=== PATIENT | female | born 1955 | race Caucasian/White ===

== ENCOUNTER 2019-05-24 16:29 | Emergency (ER) | payer MEDICARE, OTHER ==
--- NOTE | 2019-05-24 18:27 | EDM.PDOC ---
ED HPI GENERAL MEDICAL PROBLEM - General Chief Complaint: Lower Extremity Injury/Pain Stated Complaint: LEFT LEG CRAMPS AND PAIN, CHEST PAIN Time Seen by Provider: 05/24/19 17:40 Source of Information: Reports: Patient, Family () History Limitations: Reports: No Limitations - History of Present Illness INITIAL COMMENTS - FREE TEXT/NARRATIVE: Alert 64 yo female presents to ER with 10 days history of left leg cramping and weakness. Patient noted cramping in her left calf approximately 10 days ago. 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 Patient states in the summer she walks 3 miles twice and day and [employer] on average 6 days per week. 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 Patient denies new fall injury or specific activity. Patient called the nurse line Sunday and reassurance was offered with recommended follow-up with PCP and Neurologist due to known MS history. 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 Patient has been fairly stable with her current MS treatment injections 3 day a week ( Sunday, and Sunday). Patient has been monitoring her symptoms with intermittent cramping in the back of her right leg with limping/difficulty walking and worsening function with numbness and burning in the left leg. Today she was in the kitchen baking a cake when she had a sudden burning, cramping and discomfort in her left leg. She was concerned she may pass out due to abrupt 2 minute onset of sharp chest pain. Patient called the nurse line and recommended ER evaluation this evening. Patient presents with her for evaluation. He is also concerned that her chest pain symptoms is what is described as MS hug which can mimic cardiac, gallbladder and lung concerns. - Related Data Allergies Allergy/AdvReac Type Severity Reaction Status Date / Time No Known Allergies Allergy Verified 05/24/19 16:50 Home Meds: Home Meds Glatiramer Acetate [Copaxone] 40 mg PO ASDIRECTED 05/24/19 [History] Past Medical History HEENT History: Reports: Impaired Vision Gastrointestinal History: Reports: Chronic Constipation Musculoskeletal History: Reports: None Neurological History: Reports: MS - Infectious Disease History Infectious Disease History: Reports: Chicken Pox - Past Surgical History Head Surgeries/Procedures: Reports: None HEENT Surgical History: Reports: Cataract Surgery GI Surgical History: Reports: Colonoscopy Neurological Surgical History: Reports: None Musculoskeletal Surgical History: Reports: Other (See Below) Other Musculoskeletal Surgeries/Procedures:: bilat feet Dermatological Surgical History: Reports: None Social & Family History - Tobacco Use Smoking Status *Q: Never Smoker Second Hand Smoke Exposure: No - Caffeine Use Caffeine Use: Reports: Other - Recreational Drug Use Recreational Drug Use: No Review of Systems - Review of Systems Review Of Systems: ROS reveals no pertinent complaints other than HPI. ED EXAM, GENERAL - Physical Exam Exam: See Below Exam Limited By: No Limitations General Appearance: Alert, WD/WN, No Apparent Distress Eye Exam: Bilateral Eye: EOMI, PERRL Ears: Normal External Exam, Normal Canal, Hearing Grossly Normal Nose: Normal Inspection, Normal Mucosa Throat/Mouth: Normal Inspection, Normal Lips, Normal Teeth, Normal Gums, Normal Voice Head: Normocephalic Neck: Normal Inspection, Supple, Non-Tender, Full Range of Motion Respiratory/Chest: No Respiratory Distress, Lungs Clear, Normal Breath Sounds, No Accessory Muscle Use Cardiovascular: Normal Peripheral Pulses, Regular Rate, Rhythm GI/Abdominal: Normal Bowel Sounds, Soft, Non-Tender Back Exam: Normal Inspection, Full Range of Motion, NT Extremities: Normal Inspection, Normal Range of Motion, Non-Tender, No Pedal Edema, Normal Capillary Refill. No: Leg Pain (Negative pain with calf squeeze. Weakness in flexion left lower leg compared to right) Neurological: Alert, Oriented, CN II-XII Intact, Normal Cognition, Normal Gait Psychiatric: Normal Affect, Normal Mood, Anxious Skin Exam: Warm, Dry, Intact, Normal Color, No Rash Course - Vital Signs Last Recorded V/S: Last Vital Signs Temp 36.7 C 05/24/19 16:56 Pulse 76 05/24/19 17:21 Resp 16 05/24/19 16:56 BP 162/86 H 05/24/19 17:21 Pulse Ox 98 05/24/19 16:56 - Orders/Labs/Meds Labs: Laboratory Tests 05/24/19 05/24/19 Range/Units 17:37 17:37 D-Dimer, Quantitative 499 H (0.0-400.0) ng/mL Sodium 138 L (140-148) mmol/L Potassium 3.9 (3.6-5.2) mmol/L Chloride 102 (100-108) mmol/L Carbon Dioxide 29 (21-32) mmol/L Anion Gap 10.9 (5.0-14.0) mmol/L BUN 25 H (7-18) mg/dL Creatinine 1.0 (0.6-1.0) mg/dL Est Cr Clr Drug Dosing 57.83 mL/min Estimated GFR (MDRD) 55 L (>60) Glucose 93 (74-106) mg/dL Calcium 9.0 (8.5-10.1) mg/dL Magnesium 1.9 (1.8-2.4) mg/dL - Re-Assessments/Exams Free Text/Narrative Re-Assessment/Exam: Lab results available. Normal Electrolytes and D Dimer 499. Patient is low risk for PE/DVT/VTE Adjusted D Dimer 660 making VTE unlikely. 05/24/19 18:39 Departure - Departure Time of Disposition: 18:50 Disposition: Admitted As Inpatient 64 Clinical Impression: Leg cramping, Multiple sclerosis, Elevated blood pressure reading - Discharge Information Instructions: Muscle Cramps and Spasms, How to Take Your Blood Pressure, Hypertension, Multiple Sclerosis Referrals: Wero Meza MD [Primary Care Provider] - Forms: ED Department Discharge Additional Instructions: 1. Continue current medications. Consider checking your blood pressure 2-3 times per week for the next 2 weeks and discuss with PCP. 2. Call PCP regarding ER visit for follow-up in 1-2 weeks if symptoms continue or new concerns. 3. Call Neurology regarding symptoms which is likely an MS flare. 4. Follow information regarding muscle cramping. 5. Return to ER if concerns or worsening symptoms. - Problem List & Annotations (1) Leg cramping SNOMED Code(s): 572802975 Code(s): R25.2 - CRAMP AND SPASM Status: Acute Current Visit: Yes (2) Multiple sclerosis SNOMED Code(s): 16680675 Code(s): G35 - MULTIPLE SCLEROSIS Status: Acute Current Visit: Yes
== END 2019-05-24 18:49 | disposition critical access hospital (66) ==
LOC: JP.ED 16:29
DX: R25.2 Cramp and spasm (principal); G35 Multiple sclerosis; R03.0 Elevated blood-pressure reading, without diagnosis of hypertension
CPT/HCPCS: 36415; 80048; 83735; 85379; 99284; 99285

== ENCOUNTER 2021-04-04 08:50 | Day surgery (SDC) | payer MEDICARE, OTHER ==
[~2021-04-04 08:50] MED LIST: Midazolam 1 MG/ML 2 ML SDV ONE; Propofol 200 MG/20 ML SDV ONE; fentaNYL 100 MCG/2 ML SDV ONE
[2021-04-04] MEDS ORDERED: Sodium Chloride 0.9% 1,000 ML IV SCH (09:00)
--- NOTE | 2021-04-04 15:13 | OR ---
DATE OF PROCEDURE: 04/04/2021 SURGEON: Broderick Hernandez MD PROCEDURE: Colonoscopy. FINDINGS: 1. Diverticulosis, mild, mostly limited to sigmoid colon. 2. Descending colon polyp, approximately 5 mm, completely removed using cold biopsy forceps. COMPLICATIONS: None. BISQUE KILN PLACER: None. ANESTHESIA: MAC. PREOPERATIVE DIAGNOSIS: Screening colonoscopy. POSTOPERATIVE DIAGNOSIS: Screening colonoscopy. RISKS: Risks, benefits, alternatives, and limitations including but not limited to infection, bleeding, perforation, false positives, and false negatives were explained to the patient and she wished to proceed. PROCEDURE IN DETAIL: The patient was placed in left lateral decubitus position. Digital rectal exam was performed without abnormality. The scope was introduced and advanced atraumatically to the ileocecal valve. A photo was taken of the appendiceal orifice. Scope was brought back to the ascending, transverse, descending colon, and retroflexed. The aforementioned polyp was identified and completely removed without abnormality. The scope was brought back to the ascending, transverse, descending colon, and retroflexed. The aforementioned polyp was identified and completely removed. No other polyps were noted. The diverticulosis was described as mild, limited to sigmoid colon without evidence of diverticulitis or bleeding. Greater than 8 minutes was spent removing the scope. The prep was acceptable, approximately 90% of the luminal surface could be seen. Broderick Hernandez MD /[id number]
== END 2021-04-04 13:55 | disposition home or self-care (01) ==
LOC: JP.SDS 08:50
PROVIDERS: ATTEND Surgery
DX: Z12.11 Encounter for screening for malignant neoplasm of colon (principal); D12.4 Benign neoplasm of descending colon; K57.30 Diverticulosis of large intestine without perforation or abscess without bleeding
CPT/HCPCS: 88305; J2250; J2704; J3010; J7030